=== PATIENT | male | born 1970 | race Caucasian/White ===

== ENCOUNTER 2019-04-30 19:02 | Emergency (ER) | payer OTHER ==
[2019-04-30] MEDS ORDERED: HYDROmorphone 1 MG/ML Syringe ONE (19:54)
[2019-04-30] MEDS ORDERED: HYDROmorphone 2 MG Tab PO ONE ×3 (19:56→19:59)
--- NOTE | 2019-04-30 20:05 | EDM.PDOC ---
ED HPI GENERAL MEDICAL PROBLEM - General Chief Complaint: Gastrointestinal Problem Stated Complaint: MEDICAL [facility]IA [facility] Time Seen by Provider: 04/30/19 19:30 Source of Information: Reports: Patient History Limitations: Reports: No Limitations - History of Present Illness INITIAL COMMENTS - FREE TEXT/NARRATIVE: 49-year-old male who was discharged from the hospital after surgery for prostate cancer is having a bad reaction to the Vicodin. No fever or chills, no nausea or vomiting. He received Dilaudid in the hospital and did well with that. Onset: Sudden - Related Data Allergies Allergy/AdvReac Type Severity Reaction Status Date / Time Penicillins Allergy Nausea Verified 04/30/19 19:25 Home Meds: Home Meds ALPRAZolam [Alprazolam] 0.5 mg PO ASDIRECTED PRN 04/30/19 [History] Clindamycin HCl 300 mg PO TID 04/30/19 [History] Hydrocodone/Acetaminophen [Hydrocodon-Acetaminophen 5-325] 1 tab PO Q4H PRN 07/11 [History] amLODIPine [Norvasc] 5 mg PO DAILY 04/30/19 [History] Past Medical History Cardiovascular History: Reports: Hypertension Genitourinary History: Reports: Prostate Disorder Oncologic (Cancer) History: Reports: Prostate - Past Surgical History Male Surgical History: Reports: Prostatectomy Social & Family History - Tobacco Use Smoking Status *Q: Former Smoker Used Tobacco, but Quit: Yes Month/Year Tobacco Last Used: 36 - Caffeine Use Caffeine Use: Reports: Coffee - Recreational Drug Use Recreational Drug Use: No ED ROS GENERAL - Review of Systems Review Of Systems: See Below Constitutional: Denies: Fever, Chills HEENT: Denies: Vision Change Respiratory: Denies: Shortness of Breath Cardiovascular: Denies: Chest Pain GI/Abdominal: Reports: Abdominal Pain. Denies: Constipation : Reports: No Symptoms Neurological: Reports: Confusion, Other (Agitation) Psychiatric: Reports: Agitation, Anxiety ED EXAM, GENERAL - Physical Exam Exam: See Below Exam Limited By: No Limitations General Appearance: Alert, No Apparent Distress, Other (Patient is calm down, thinking clearly and is communicating normally) Respiratory/Chest: No Respiratory Distress, Lungs Clear GI/Abdominal: Normal Bowel Sounds, Soft, Other (Some tenderness to palpation around the surgical sites, no erythema or drainage) Extremities: Other (1+ symmetric lower extremity edema) Neurological: Alert, Oriented Psychiatric: Normal Affect, Normal Mood Skin Exam: Warm, Dry, Other (Incisions look excellent, dry, no drainage) Course - Vital Signs Last Recorded V/S: Last Vital Signs Temp 97.8 F 04/30/19 19:23 Pulse 101 H 04/30/19 19:23 Resp 16 04/30/19 19:23 BP 185/82 H 04/30/19 19:23 Pulse Ox 92 L 04/30/19 19:23 - Orders/Labs/Meds Meds: Medications Discontinued Medications Generic Name Dose Route Start Last Admin Trade Name Mark PRN Reason Stop Dose Admin Hydromorphone HCl 2 mg 04/30/19 19:56 04/30/19 20:14 Dilaudid PO 04/30/19 19:57 2 mg ONETIME ONE Administration Hydromorphone HCl 2 mg 04/30/19 19:57 04/30/19 20:15 Dilaudid PO 04/30/19 19:58 2 mg ONETIME ONE Administration Hydromorphone HCl 2 mg 04/30/19 19:59 04/30/19 20:15 Dilaudid PO 04/30/19 20:00 2 mg ONETIME ONE Administration - Re-Assessments/Exams Free Text/Narrative Re-Assessment/Exam: 04/30/19 23:33 Patient was given 3 doses of 2 mg Dilaudid to take every 4 hours tonight and a prescription for 20 doses. Hydrocodone was discarded. He'll return over the next 24-48 hours if pain control is not adequate or he develops other concerns.. Departure - Departure Time of Disposition: 20:19 Disposition: Home, Self-Care 01 Condition: Good Clinical Impression: Medication side effect - Discharge Information Instructions: Pain Medicine Instructions, [id number] Referrals: PCP,None [Primary Care Provider] - Forms: ED Department Discharge Care Plan Goals: Take Dilaudid at 10 PM 2 and 6 AM and fill prescription tomorrow to continue pain medication as directed. Return if additional problems develop or you have other concerns.
== END 2019-04-30 20:19 | disposition home or self-care (01) ==
LOC: JP.ED 19:02
DX: T40.2X5A Adverse effect of other opioids, initial encounter (principal); I10 Essential (primary) hypertension; Z88.0 Allergy status to penicillin; Z79.899 Other long term (current) drug therapy; Z85.46 Personal history of malignant neoplasm of prostate; Z87.891 Personal history of nicotine dependence
CPT/HCPCS: 99284; A9270

== ENCOUNTER 2019-11-03 11:55 | Emergency (ER) | payer OTHER, SELFPAY ==
[2019-11-03] MEDS ORDERED: Albuterol 0.083% 2.5 MG/3 ML Neb Soln NEB ONE (12:53)
--- NOTE | 2019-11-03 12:56 | EDM.PDOC ---
ED HPI GENERAL MEDICAL PROBLEM - General Chief Complaint: Respiratory Problem Stated Complaint: PLUGGED FEEDING TUBE, SOB, IN PAIN - POST SURGERY Time Seen by Provider: 11/03/19 12:54 Source of Information: Reports: Patient History Limitations: Reports: No Limitations - History of Present Illness INITIAL COMMENTS - FREE TEXT/NARRATIVE: pt has a thyroglossal cyst surgery and has a feeding tube in place . The feeding tube is now plugged. He is not to take anything orally until next week. Onset: Today, Other ( The tube is plugged. ) Duration: Hour(s): Location: Reports: Neck, Chest, Abdomen Associated Symptoms: Reports: Cough, Other ( coughing up bloody sputum. ) - Related Data Allergies Allergy/AdvReac Type Severity Reaction Status Date / Time acetaminophen [From [place]] Allergy Other Verified 11/03/19 12:28 hydrocodone [From [place]] Allergy Other Verified 11/03/19 12:28 Penicillins Allergy Nausea Verified 11/03/19 12:27 Home Meds: Home Meds amLODIPine [Norvasc] 5 mg PO DAILY 04/30/19 [History] Acetaminophen with Codeine [Tylenol with Codeine #3 Tablet] 1 tab PO ASDIRECTED PRN 11/03/19 [History] Sildenafil [Viagra] 50 mg PO BEDTIME PRN 11/03/19 [History] Past Medical History Cardiovascular History: Reports: Hypertension Genitourinary History: Reports: Prostate Disorder Endocrine/Metabolic History: Reports: None Oncologic (Cancer) History: Reports: Prostate - Past Surgical History Head Surgeries/Procedures: Reports: None Cardiovascular Surgical History: Reports: None Male Surgical History: Reports: Prostatectomy Endocrine Surgical History: Reports: Thyroidectomy, Other (See Below) Oncologic Surgical History: Reports: None Dermatological Surgical History: Reports: None Social & Family History - Tobacco Use Smoking Status *Q: Former Smoker Used Tobacco, but Quit: Yes Month/Year Tobacco Last Used: 2015 Second Hand Smoke Exposure: No - Caffeine Use Caffeine Use: Reports: Coffee, Soda - Recreational Drug Use Recreational Drug Use: No ED ROS GENERAL - Review of Systems Review Of Systems: See Below Constitutional: Reports: No Symptoms HEENT: Reports: Other (pt had a throglossal cyst removed 2 days ago. He is using a feeding tube and the feeding tube is plugged. He is also feeling sob. He has been coughing some. ) Respiratory: Reports: Shortness of Breath Cardiovascular: Reports: No Symptoms Endocrine: Reports: No Symptoms GI/Abdominal: Reports: Other ( feeding tube is not working. ) : Reports: No Symptoms Musculoskeletal: Reports: No Symptoms Skin: Reports: No Symptoms Neurological: Reports: No Symptoms Psychiatric: Reports: Anxiety ED EXAM, GI/ABD - Physical Exam Exam: See Below Text/Narrative:: pt arrived with a feeding tube that was plugged. He is getting ensure per the feeding tube. He is also feeling sob. Exam Limited By: No Limitations General Appearance: Alert, Anxious, Mild Distress Ears: Normal TMs Nose: Normal Inspection Throat/Mouth: Normal Inspection Head: Atraumatic Neck: Other (pt has a scar on the neck where the cyst was removed. This was steristripped) Respiratory/Chest: Wheezing, Other ( pt has a tight sounding chest and is very wheezy. ) Cardiovascular: Regular Rate, Rhythm GI/Abdominal Exam: Soft, Non-Tender (Male) Exam: Deferred Rectal (Males) Exam: Deferred Back Exam: Normal Inspection Extremities: Normal Inspection Course - Vital Signs Last Recorded V/S: Last Vital Signs Temp 37.2 C 11/03/19 12:35 Pulse 91 11/03/19 12:35 Resp 18 11/03/19 12:35 BP 156/93 H 11/03/19 12:35 Pulse Ox 95 11/03/19 12:35 - Orders/Labs/Meds Labs: Laboratory Tests 11/03/19 11/03/19 Range/Units 12:56 12:56 WBC 11.1 H (4.5-11.0) K/uL RBC 4.46 (4.30-5.90) M/uL Hgb 13.8 (12.0-15.0) g/dL Hct 42.2 (40.0-54.0) % MCV 95 (80-98) fL MCH 31 (27-31) pg MCHC 33 (32-36) % Plt Count 249 (150-400) K/uL Neut % (Auto) 75 H (36-66) % Lymph % (Auto) 12 L (24-44) % [place] % (Auto) 13 H (2-6) % Eos % (Auto) 0 L (2-4) % Baso % (Auto) 0 (0-1) % Sodium 134 L (140-148) mmol/L Potassium 3.7 (3.6-5.2) mmol/L Chloride 97 L (100-108) mmol/L Carbon Dioxide 24 (21-32) mmol/L Anion Gap 16.7 H (5.0-14.0) mmol/L BUN 22 H (7-18) mg/dL Creatinine 1.1 (0.8-1.3) mg/dL Est Cr Clr Drug Dosing 82.03 mL/min Estimated GFR (MDRD) > 60 (>60) Glucose 103 (74-106) mg/dL Calcium 8.8 (8.5-10.1) mg/dL Total Bilirubin 0.8 (0.2-1.0) mg/dL AST 19 (15-37) U/L ALT 23 (12-78) U/L Alkaline Phosphatase 86 (46-116) U/L Total Protein 8.4 H (6.4-8.2) g/dL Albumin 3.9 (3.4-5.0) g/dL Globulin 4.5 H (2.3-3.5) g/dL Albumin/Globulin Ratio 0.9 L (1.2-2.2) Meds: Medications Discontinued Medications Generic Name Dose Route Start Last Admin Trade Name Freq PRN Reason Stop Dose Admin Albuterol 2.5 mg 11/03/19 12:53 11/03/19 13:01 Proventil Neb Soln NEB 11/03/19 12:54 2.5 mg ONETIME ONE Administration Sodium Chloride 1,000 mls @ 999 mls/hr 11/03/19 13:30 11/03/19 13:46 Normal Saline IV 999 mls/hr ASDIRECTED CANDACE Administration - Re-Assessments/Exams Free Text/Narrative Re-Assessment/Exam: 11/03/19 14:26 wbc was not sig elevated. His chest xray did not reveal a infiltrate. He does not have a fever. A albterol neb was given to the pt . His feeding tube was irrigated to no avail. A decision was made that another feeding tube should be placed. 11/03/19 14:26 Departure - Departure Time of Disposition: 15:28 Disposition: Home, Self-Care 01 Condition: Fair Clinical Impression: Feeding tube blocked, Dehydration, Bronchospasm - Discharge Information Instructions: How to Care for a Feeding Tube, [id number], Dehydration, Adult , [id number], Bronchospasm, Adult, [id number] Referrals: PCP,None [Primary Care Provider] - Forms: ED Department Discharge Care Plan Goals: do the same feedings per discharge instruction, albuterol inhaler with a small assistant finance manager 2 puffs tid Sepsis Event Note - Evaluation Sepsis Screening Result: No Definite Risk - Focused Exam Date Exam was Performed: 11/05/19 Time Exam was Performed: 18:25
--- NOTE | 2019-11-03 13:13 | CRLCR ---
INDICATION: Dyspnea COMPARISON: None FINDINGS: PA and lateral views of the chest were obtained. The lungs remain clear. No focal or diffuse infiltrates are present. The heart remains normal in size. The mediastinum is normal in appearance. The osseous structures are normal in appearance for the patient`s age. A weighted tip feeding tube ends in the stomach IMPRESSION: No evidence of active pulmonary disease. A weighted tip feeding tube ends in the stomach Dictated by Billy Simpson MD @ Nov 03 2019 1:10PM Signed by Dr. Billy Simpson @ Nov 03 2019 1:12PM
[2019-11-03] MEDS ORDERED: Sodium Chloride 0.9% 1,000 ML IV SCH (13:30)
== END 2019-11-03 15:43 | disposition home or self-care (01) ==
LOC: JP.ED 11:55
DX: K94.23 Gastrostomy malfunction (principal); E86.0 Dehydration; J98.01 Acute bronchospasm; I10 Essential (primary) hypertension; Z88.0 Allergy status to penicillin; Z79.899 Other long term (current) drug therapy; Z88.8 Allergy status to other drugs, medicaments and biological substances; Z87.891 Personal history of nicotine dependence
CPT/HCPCS: 36415; 71046; 80053; 85025; 94640; 96360; 99285; J7030

== ENCOUNTER 2019-11-05 17:53 | Emergency (ER) | payer OTHER ==
[2019-11-05] MEDS ORDERED: LORazepam 0.5 MG Tab PO ONE (18:26)
--- NOTE | 2019-11-05 18:27 | EDM.PDOC ---
ED HPI GENERAL MEDICAL PROBLEM - General Chief Complaint: Tube Replacement Stated Complaint: FEEDING TUBE FELL OUT Time Seen by Provider: 11/05/19 18:27 Source of Information: Reports: Patient History Limitations: Reports: No Limitations - History of Present Illness INITIAL COMMENTS - FREE TEXT/NARRATIVE: pt arrived with a history of accidently pulling out his ng tube. He had been doing feedings since he left on thur. I did contact Dr Izaguirre as to weather he could leave it out or not and he felt that that should not happen. Onset: Today, Other ( tube came out this pm. ) Duration: Hour(s): Location: Reports: Neck, Other (pt had a thyroglossal cyst removed. ) Associated Symptoms: Reports: Other ( feeding tube is out. ) - Related Data Allergies Allergy/AdvReac Type Severity Reaction Status Date / Time acetaminophen [From [place]] Allergy Other Verified 11/03/19 12:28 hydrocodone [From [place]] Allergy Other Verified 11/03/19 12:28 Penicillins Allergy Nausea Verified 11/03/19 12:27 Home Meds: Home Meds amLODIPine [Norvasc] 5 mg PO DAILY 04/30/19 [History] Acetaminophen with Codeine [Tylenol with Codeine #3 Tablet] 1 tab PO ASDIRECTED PRN 11/03/19 [History] Sildenafil [Viagra] 50 mg PO BEDTIME PRN 11/03/19 [History] Past Medical History Cardiovascular History: Reports: Hypertension Genitourinary History: Reports: Prostate Disorder Endocrine/Metabolic History: Reports: None Oncologic (Cancer) History: Reports: Prostate - Past Surgical History Head Surgeries/Procedures: Reports: None Cardiovascular Surgical History: Reports: None Male Surgical History: Reports: Prostatectomy Endocrine Surgical History: Reports: Thyroidectomy, Other (See Below) Oncologic Surgical History: Reports: None Dermatological Surgical History: Reports: None Social & Family History - Tobacco Use Smoking Status *Q: Former Smoker Used Tobacco, but Quit: Yes Month/Year Tobacco Last Used: 2015 - Caffeine Use Caffeine Use: Reports: Coffee, Soda - Recreational Drug Use Recreational Drug Use: No ED ROS GENERAL - Review of Systems Review Of Systems: See Below Constitutional: Reports: No Symptoms HEENT: Reports: No Symptoms Respiratory: Reports: No Symptoms Cardiovascular: Reports: No Symptoms Endocrine: Reports: No Symptoms GI/Abdominal: Reports: Other (pt accidently pulled out his feeding tube. ) : Reports: No Symptoms Skin: Reports: No Symptoms Neurological: Reports: No Symptoms ED EXAM, GENERAL - Physical Exam Exam: See Below Free Text/Narrative:: Pt arrived for reinsertion of the feeding tube. Exam Limited By: No Limitations General Appearance: Alert, Anxious, Other (pt is not sleeping. ) Ears: Normal TMs Nose: Normal Inspection Throat/Mouth: Normal Inspection Head: Atraumatic Neck: Normal Inspection Respiratory/Chest: No Respiratory Distress Cardiovascular: Regular Rate, Rhythm GI/Abdominal: Soft, Non-Tender Rectal (Males) Exam: Deferred Back Exam: Normal Inspection Extremities: Normal Inspection Neurological: Alert, Oriented, Normal Cognition Course - Vital Signs Last Recorded V/S: Last Vital Signs Temp 36.5 C 11/05/19 18:02 Pulse 112 H 11/05/19 18:02 Resp 16 11/05/19 18:02 BP 179/110 H 11/05/19 18:02 Pulse Ox 91 L 11/05/19 18:02 - Orders/Labs/Meds Orders: Active Orders 24 hr Category Date Time Status Abdomen 1V Flat [CR] Stat Exams 11/05/19 18:36 Ordered Meds: Medications Discontinued Medications Generic Name Dose Route Start Last Admin Trade Name Freq PRN Reason Stop Dose Admin Lorazepam 0.5 mg 11/05/19 18:26 11/05/19 18:57 Ativan PO 11/05/19 18:27 0.5 mg ONETIME ONE Administration - Re-Assessments/Exams Free Text/Narrative Re-Assessment/Exam: 11/05/19 19:10 Dr Izaguirre was contacted about leaving the tube out and he definitely wished to have it back in. The tuibe was reinserted and a xray was obtained. It was curling back so it was pulled back. He was more comfortable with it. He was given atiovan and the tube irrigated well. Departure - Departure Time of Disposition: 19:01 Disposition: Home, Self-Care 01 Condition: Fair Clinical Impression: Anxiety, Encounter for feeding tube placement - Discharge Information Instructions: How To Give Medicine Through a Feeding Tube Referrals: Cady Duarte MD [Primary Care Provider] - Forms: ED Department Discharge Care Plan Goals: continue feedings until wed. Ativan 1/2 tab q8h prn for anxiety. Pt can take a whole tab at hs. Sepsis Event Note - Evaluation Sepsis Screening Result: No Definite Risk - Focused Exam Vital Signs: Vital Signs Temp Pulse Resp BP Pulse Ox 11/05/19 18:02 36.5 C 112 H 16 179/110 H 91 L 11/05/19 18:01 36.5 C 112 H 16 179/110 H 91 L Date Exam was Performed: 11/05/19 Time Exam was Performed: 19:06 - My Orders Last 24 Hours: My Active Orders 11/05/19 18:36 Abdomen 1V Flat [CR] Stat - Assessment/Plan Last 24 Hours: My Active Orders 11/05/19 18:36 Abdomen 1V Flat [CR] Stat
--- NOTE | 2019-11-05 19:16 | CRLCR ---
INDICATION: Tube placement TECHNIQUE: Abdominal radiograph 2 view COMPARISON: None FINDINGS: Moderate degradation of image quality noted due to body habitus. Bowel: The bowel gas pattern is normal without evidence of bowel obstruction. NG tube present with tip in the gastric fundus. Soft tissue: No evidence of pneumoperitoneum present. No suspicious calcifications noted. Bone: Unremarkable for age. IMPRESSION: 1. NG tube present with tip in the gastric fundus. Dictated by: Tremaine Cedeno MD @ 11/05/2019 19:15:44 (Electronically Signed)
== END 2019-11-05 19:10 | disposition home or self-care (01) ==
LOC: JP.ED 17:53
DX: Z46.59 Encounter for fitting and adjustment of other gastrointestinal appliance and device (principal); F41.9 Anxiety disorder, unspecified; I10 Essential (primary) hypertension; Z87.891 Personal history of nicotine dependence; Z88.6 Allergy status to analgesic agent; Z88.5 Allergy status to narcotic agent; Z88.0 Allergy status to penicillin; Z79.899 Other long term (current) drug therapy
CPT/HCPCS: 43752; 74018; 99283-25; A9270-GY

== ENCOUNTER 2019-11-26 21:11 | Emergency (ER) | payer OTHER ==
[2019-11-26] MEDS ORDERED: Phenylephrine 1% 10 MG/ML SDV IM ONE (22:27)
--- NOTE | 2019-11-26 22:33 | EDM.PDOC ---
ED HPI GENERAL MEDICAL PROBLEM - General Chief Complaint: Genitourinary Problem Stated Complaint: MEDICAL Time Seen by Provider: 11/26/19 21:40 Source of Information: Reports: Patient, Family History Limitations: Reports: No Limitations - History of Present Illness INITIAL COMMENTS - FREE TEXT/NARRATIVE: 49-year-old male who used a prostaglandin E1 injections into the penis now has a sustained erection for over 5 hours and is becoming uncomfortable. Onset: Sudden Duration: Hour(s): (5 hours) Associated Symptoms: Reports: No Other Symptoms - Related Data Allergies Allergy/AdvReac Type Severity Reaction Status Date / Time acetaminophen [From [place]] Allergy Other Verified 11/26/19 21:31 hydrocodone [From [place]] Allergy Other Verified 11/26/19 21:31 Penicillins Allergy Nausea Verified 11/26/19 21:31 Home Meds: Home Meds amLODIPine [Norvasc] 5 mg PO DAILY 04/30/19 [History] Sildenafil [Viagra] 50 mg PO BEDTIME PRN 11/03/19 [History] Alprostadil [Prostaglandin E1] 11/26/19 [History] Past Medical History Cardiovascular History: Reports: Hypertension Genitourinary History: Reports: Prostate Disorder Endocrine/Metabolic History: Reports: None Oncologic (Cancer) History: Reports: Prostate - Past Surgical History Head Surgeries/Procedures: Reports: None Cardiovascular Surgical History: Reports: None Male Surgical History: Reports: Prostatectomy Endocrine Surgical History: Reports: Thyroidectomy, Other (See Below) Oncologic Surgical History: Reports: None Dermatological Surgical History: Reports: None Social & Family History - Tobacco Use Smoking Status *Q: Never Smoker - Caffeine Use Caffeine Use: Reports: Coffee, Soda ED ROS GENERAL - Review of Systems Review Of Systems: See Below Constitutional: Denies: Fever, Chills Respiratory: Denies: Shortness of Breath GI/Abdominal: Denies: Abdominal Pain, Nausea, Vomiting ED EXAM, RENAL/ - Physical Exam Exam: See Below Exam Limited By: No Limitations General Appearance: Alert, Mild Distress (Fairly uncomfortable) Respiratory/Chest: No Respiratory Distress (Male) Exam: Other (Patient does have an erection, no apparent ischemia.) Course - Vital Signs Last Recorded V/S: Last Vital Signs Temp 98.2 F 11/26/19 21:40 Pulse 126 H 11/26/19 21:40 Resp 24 H 11/26/19 21:40 BP 149/106 H 11/26/19 21:40 Pulse Ox 97 11/26/19 21:40 - Orders/Labs/Meds Meds: Medications Discontinued Medications Generic Name Dose Route Start Last Admin Trade Name Mark PRN Reason Stop Dose Admin Lidocaine HCl 5 ml 11/26/19 23:27 11/26/19 23:32 Xylocaine-Mpf 1% INJECT 11/26/19 23:28 5 ml ONETIME ONE Administration Phenylephrine HCl 5 mg 11/26/19 22:27 11/26/19 23:32 Rishi-Synephrine IM 11/26/19 22:28 5 mg ONETIME ONE Administration - Re-Assessments/Exams Free Text/Narrative Re-Assessment/Exam: 11/27/19 06:37 After consulting urology, the patient was prepared for penile needle decompression and infiltration with phenylephrine. This was done under sterile conditions. Using an 18 g needle the corpus was decompressed with removal of 40 cc of blood, and diluted phenylephrine was infiltrated. Unfortunately after 2 attempts the erection was persistant. The patient then was arranged to go to Urology in [place] by private car. Departure - Departure Time of Disposition: 00:20 Disposition: DC/Tfer to Other 70 Clinical Impression: Priapism, drug-induced - Discharge Information Instructions: Priapism Referrals: Cady Duarte MD [Primary Care Provider] - Forms: ED Department Discharge Care Plan Goals: Go directly to the [place] emergency room for medical treatment. Sepsis Event Note - Evaluation Sepsis Screening Result: No Definite Risk - Focused Exam Vital Signs: Vital Signs Temp Pulse Resp BP Pulse Ox 11/26/19 21:40 98.2 F 126 H 24 H 149/106 H 97 11/26/19 21:25 98.2 F 126 H 24 H 149/106 H 97 Date Exam was Performed: 11/27/19 Time Exam was Performed: 06:34
== END 2019-11-27 00:20 | disposition other institution (70) ==
LOC: JP.ED 21:11
DX: N48.33 Priapism, drug-induced (principal); T46.7X5A Adverse effect of peripheral vasodilators, initial encounter; I10 Essential (primary) hypertension; Z88.8 Allergy status to other drugs, medicaments and biological substances; Z88.0 Allergy status to penicillin; Z79.899 Other long term (current) drug therapy
CPT/HCPCS: 99284-25; J2001; J2370

== ENCOUNTER 2020-01-30 11:53 | Emergency (ER) | payer OTHER ==
--- NOTE | 2020-01-30 12:31 | EDM.PDOC ---
ED HPI GENERAL MEDICAL PROBLEM - General Chief Complaint: General Stated Complaint: POPPED MASS IN NECK WITH CHEST PAINS Time Seen by Provider: 01/30/20 12:29 Source of Information: Reports: Patient History Limitations: Reports: No Limitations - History of Present Illness INITIAL COMMENTS - FREE TEXT/NARRATIVE: pt had left sided chest pain and elevated bp in the middle of the nite. He is now painfree/ He has a mass in the midline of his neck which needs a cat scan. Onset: Other ( The mass was noticed yesterday. ) Duration: Hour(s): Location: Reports: Chest Associated Symptoms: Reports: Chest Pain, Shortness of Breath, Other (Pain gets better with deep breathing. ) Neck Pain Score (Numeric/FACES): 2 - Related Data Allergies Allergy/AdvReac Type Severity Reaction Status Date / Time acetaminophen [From [place]] Allergy Other Verified 11/26/19 21:31 hydrocodone [From [place]] Allergy Other Verified 11/26/19 21:31 Penicillins Allergy Nausea Verified 11/26/19 21:31 Home Meds: Home Meds amLODIPine [Norvasc] 5 mg PO DAILY 04/30/19 [History] Sildenafil [Viagra] 50 mg PO BEDTIME PRN 11/03/19 [History] Alprostadil [Prostaglandin E1] 11/26/19 [History] Past Medical History Cardiovascular History: Reports: Hypertension Genitourinary History: Reports: Prostate Disorder Endocrine/Metabolic History: Reports: None Oncologic (Cancer) History: Reports: Prostate - Infectious Disease History Infectious Disease History: Reports: Chicken Pox - Past Surgical History Head Surgeries/Procedures: Reports: None Cardiovascular Surgical History: Reports: None Male Surgical History: Reports: Prostatectomy Endocrine Surgical History: Reports: Thyroidectomy, Other (See Below) Oncologic Surgical History: Reports: None Dermatological Surgical History: Reports: None Social & Family History - Tobacco Use Smoking Status *Q: Never Smoker - Caffeine Use Caffeine Use: Reports: Soda - Recreational Drug Use Recreational Drug Use: No ED ROS GENERAL - Review of Systems Review Of Systems: See Below Constitutional: Reports: No Symptoms HEENT: Reports: Other (mass near the scar from the thriglossal cyst remval. This appeared yesterday. ) Respiratory: Reports: Other (pt has pain ith deep breathing but sometimes the deep breathing makes the pain better. ) Cardiovascular: Reports: No Symptoms Endocrine: Reports: No Symptoms GI/Abdominal: Reports: No Symptoms : Reports: No Symptoms Musculoskeletal: Reports: No Symptoms ED EXAM, GENERAL - Physical Exam Exam: See Below Free Text/Narrative:: pt arrived with an episode of chest pain last nite. This just lasted a short time.He also has a mass on the ant portion of the neck. This appeared yesterday. Exam Limited By: No Limitations General Appearance: Alert, Mild Distress Ears: Normal TMs Nose: Normal Inspection Throat/Mouth: Other (pt has a mass in the front of the neck. This does appear slightly red. ) Head: Atraumatic Neck: Normal Inspection Respiratory/Chest: No Respiratory Distress Cardiovascular: Regular Rate, Rhythm GI/Abdominal: Soft, Non-Tender (Male) Exam: Deferred Rectal (Males) Exam: Deferred Back Exam: Normal Inspection Extremities: Normal Inspection Neurological: Alert, Oriented, Normal Cognition Course - Vital Signs Last Recorded V/S: Last Vital Signs Temp 35.8 C L 01/30/20 12:30 Pulse 88 01/30/20 12:30 Resp 16 01/30/20 12:30 BP 147/98 H 01/30/20 12:30 Pulse Ox 98 01/30/20 12:30 - Orders/Labs/Meds Labs: Laboratory Tests 01/30/20 01/30/20 01/30/20 Range/Units 12:24 12:24 12:24 WBC 9.9 (4.5-11.0) K/uL RBC 4.82 (4.30-5.90) M/uL Hgb 14.5 (12.0-15.0) g/dL Hct 43.9 (40.0-54.0) % MCV 91 (80-98) fL MCH 30 (27-31) pg MCHC 33 (32-36) % Plt Count 355 (150-400) K/uL Neut % (Auto) 72 H (36-66) % Lymph % (Auto) 13 L (24-44) % [place] % (Auto) 9 H (2-6) % Eos % (Auto) 6 H (2-4) % Baso % (Auto) 1 (0-1) % D-Dimer, Quantitative (0.0-400.0) ng/mL Sodium 139 L (140-148) mmol/L Potassium 4.2 (3.6-5.2) mmol/L Chloride 103 (100-108) mmol/L Carbon Dioxide 27 (21-32) mmol/L Anion Gap 13.2 (5.0-14.0) mmol/L BUN 19 H (7-18) mg/dL Creatinine 1.3 (0.8-1.3) mg/dL Est Cr Clr Drug Dosing 68.63 mL/min Estimated GFR (MDRD) 58 L (>60) Glucose 92 (74-106) mg/dL Calcium 8.5 (8.5-10.1) mg/dL Total Bilirubin 0.5 (0.2-1.0) mg/dL AST 18 (15-37) U/L ALT 27 (12-78) U/L Alkaline Phosphatase 102 (46-116) U/L Troponin I < 0.017 (0.000-0.056) ng/mL C-Reactive Protein (0.0-0.3) mg/dL Total Protein 7.8 (6.4-8.2) g/dL Albumin 3.7 (3.4-5.0) g/dL Globulin 4.1 H (2.3-3.5) g/dL Albumin/Globulin Ratio 0.9 L (1.2-2.2) Urine Color (YELLOW) Urine Appearance (CLEAR) Urine pH (5.0-8.0) Ur Specific [place] (1.008-1.030) Urine Protein (NEGATIVE) mg/dL Urine Glucose (UA) (NEGATIVE) mg/dL Urine Ketones (NEGATIVE) mg/dL Urine Occult Blood (NEGATIVE) Urine Nitrite (NEGATIVE) Urine Bilirubin (NEGATIVE) Urine Urobilinogen (0.2-1.0) EU/dL Ur Leukocyte Esterase (NEGATIVE) Urine RBC (0-5) Urine WBC (0-5) Ur Epithelial Cells Amorphous Sediment Urine Bacteria Urine Mucus 01/30/20 01/30/20 01/30/20 Range/Units 12:26 13:15 15:10 WBC (4.5-11.0) K/uL RBC (4.30-5.90) M/uL Hgb (12.0-15.0) g/dL Hct (40.0-54.0) % MCV (80-98) fL MCH (27-31) pg MCHC (32-36) % Plt Count (150-400) K/uL Neut % (Auto) (36-66) % Lymph % (Auto) (24-44) % [place] % (Auto) (2-6) % Eos % (Auto) (2-4) % Baso % (Auto) (0-1) % D-Dimer, Quantitative 579 H (0.0-400.0) ng/mL Sodium (140-148) mmol/L Potassium (3.6-5.2) mmol/L Chloride (100-108) mmol/L Carbon Dioxide (21-32) mmol/L Anion Gap (5.0-14.0) mmol/L BUN (7-18) mg/dL Creatinine (0.8-1.3) mg/dL Est Cr Clr Drug Dosing mL/min Estimated GFR (MDRD) (>60) Glucose (74-106) mg/dL Calcium (8.5-10.1) mg/dL Total Bilirubin (0.2-1.0) mg/dL AST (15-37) U/L ALT (12-78) U/L Alkaline Phosphatase (46-116) U/L Troponin I (0.000-0.056) ng/mL C-Reactive Protein 1.95 H (0.0-0.3) mg/dL Total Protein (6.4-8.2) g/dL Albumin (3.4-5.0) g/dL Globulin (2.3-3.5) g/dL Albumin/Globulin Ratio (1.2-2.2) Urine Color Yellow (YELLOW) Urine Appearance Clear (CLEAR) Urine pH 6.5 (5.0-8.0) Ur Specific [place] 1.015 (1.008-1.030) Urine Protein Negative (NEGATIVE) mg/dL Urine Glucose (UA) Negative (NEGATIVE) mg/dL Urine Ketones Negative (NEGATIVE) mg/dL Urine Occult Blood Trace-intact H (NEGATIVE) Urine Nitrite Negative (NEGATIVE) Urine Bilirubin Negative (NEGATIVE) Urine Urobilinogen 0.2 (0.2-1.0) EU/dL Ur Leukocyte Esterase Negative (NEGATIVE) Urine RBC 0-5 (0-5) Urine WBC 0-5 (0-5) Ur Epithelial Cells Not seen Amorphous Sediment Not seen Urine Bacteria Not seen Urine Mucus Rare Meds: Medications Discontinued Medications Generic Name Dose Route Start Last Admin Trade Name Freq PRN Reason Stop Dose Admin Ceftriaxone Sodium 1 gm/ 0 gm 01/30/20 14:37 Lidocaine HCl 2.1 ml IM 01/30/20 14:38 ONETIME ONE Sodium Chloride 70 mls @ 3 mls/sec 01/30/20 12:45 01/30/20 13:12 Normal Saline IV 3 mls/sec ASDIRECTED CANDACE Administration Ceftriaxone Sodium 1 gm/ 50 mls @ 100 mls/hr 01/30/20 14:55 01/30/20 15:07 Sodium Chloride IV 01/30/20 15:24 100 mls/hr ONETIME ONE Administration Iopamidol 100 ml 01/30/20 12:35 01/30/20 13:12 Isovue-300 (61%) IV 01/30/20 12:36 100 ml ONETIME ONE Administration - Re-Assessments/Exams Free Text/Narrative Re-Assessment/Exam: 01/30/20 14:17 ekg [facility]. His trop was normal. Wbc is not elevated. He had a cat scan of the neck mass which showed a fluid filled area with the density that could be pus. Pt has a crp which is elevated. Pt did have a ddimer wghich is only mildly elevated. He has good o2 sats. 01/30/20 14:19 01/30/20 14:20 Departure - Departure Time of Disposition: 14:38 Disposition: Home, Self-Care 01 Condition: Fair Clinical Impression: Abscess of neck, Pleuritic chest pain - Discharge Information Instructions: Skin Abscess, [id number] Referrals: PCP,None [Primary Care Provider] - Forms: ED Department Discharge Care Plan Goals: keflex 500mg tid, push fluids, keep appt on the 11th, rtc if this should suddly become larger. Sepsis Event Note - Focused Exam Date Exam was Performed: 02/02/20 Time Exam was Performed: 07:33
[2020-01-30] MEDS ORDERED: Iopamidol 612 MG/ML 500 ML Multipack Bottle IV ONE (12:35)
--- NOTE | 2020-01-30 14:25 | CT ---
Soft Tissue Neck w Cont CLINICAL HISTORY: Anterior neck mass COMPARISON: None TECHNIQUE: Multiple axial images were obtained of the neck with the IV infusion of iodinated contrast. Auto dosage reduction and iterative reconstruction techniques employed. FINDINGS: There is moderate changes of both acute and chronic ethmoid and maxillary sinusitis. The nasopharynx has a normal contour. There is enlargement of the palatine tonsils. There are no parapharyngeal masses seen. The vallecula is clear. The pyriform sinuses show no mass effect. The vocal cords are symmetric. The subglottic airway has a normal course and contour. The thyroid gland has a normal shape and density. There is an ill-defined relatively low-attenuation mass in the pretracheal region at the level of the thyroid gland. This is just to the right of midline. This measures 2.8 x 3.2 x 4.7 cm. There is a low attenuation center with some rim enhancement. Pretracheal tissues show mixed density. Patient has a history recent thyroglossal duct surgery. This is most likely a postoperative fluid collection. Abscess and posterior phlegmon is suspected.. The salivary glands appear normal. There are a few small nonspecific lymph nodes in the neck bilaterally IMPRESSION: Ovoid masslike soft tissue focus in the pretracheal region near the level of the thyroid and a site of recent previous surgery. This is suspect for a combination of phlegmon and anterior abscess. Moderate ethmoid and maxillary sinusitis with both acute and chronic characteristics Tonsillar enlargement CHEST: 2 view CLINICAL HISTORY:Neck mass COMPARISON:October 2019 FINDINGS: The heart size, pulmonary vascularity and hilar structures are normal. No infiltrate effusion or pneumothorax is seen. IMPRESSION: No acute cardiopulmonary process. Feeding tube has been removed
[2020-01-30] MEDS ORDERED: cefTRIAXone 1 GM, Lidocaine 1% 2.1 ML IM ONE ×2 (14:37)
[2020-01-30] MEDS ORDERED: cefTRIAXone 1 GM in Sodium Chloride 0.9% 50 ML IV ONE ×2 (14:44→14:55)
--- NOTE | 2020-01-30 15:07 | CR ---
CHEST: 2 view CLINICAL HISTORY:Left chest pain COMPARISON:2019 FINDINGS: The heart size, pulmonary vascularity and hilar structures are normal. No infiltrate effusion or pneumothorax is seen. IMPRESSION: No acute cardiopulmonary process.
== END 2020-01-30 15:34 | disposition home or self-care (01) ==
LOC: JP.ED 11:53
DX: L02.11 Cutaneous abscess of neck (principal); R07.81 Pleurodynia; Z88.5 Allergy status to narcotic agent; Z88.0 Allergy status to penicillin; I10 Essential (primary) hypertension; Z79.899 Other long term (current) drug therapy
CPT/HCPCS: 36415; 70491; 71046; 80053; 81001; 84484; 85025; 85379; 86140; 96365; 99285; J0696; J7050; Q9967

== ENCOUNTER 2021-07-16 11:19 | Emergency (ER) | payer OTHER ==
--- NOTE | 2021-07-16 12:03 | EDM.PDOC ---
ED HPI GENERAL MEDICAL PROBLEM - General Chief Complaint: Laceration Stated Complaint: SLIPPED ON BOARD Time Seen by Provider: 07/16/21 12:00 Source of Information: Reports: Patient, Family, RN Notes Reviewed History Limitations: Reports: No Limitations - History of Present Illness INITIAL COMMENTS - FREE TEXT/NARRATIVE: 51-year-old gentleman presents emergency department today with a laceration to his left elbow he injured himself while at work he slipped and then hit a piece of what is described an angle iron which then hit into his elbow. He is experiencing great pain with movement of the elbow however he can move all his digits his tetanus does need to be updated. - Related Data Allergies Allergy/AdvReac Type Severity Reaction Status Date / Time acetaminophen [From [place]] Allergy Other Verified 11/26/19 21:31 hydrocodone [From [place]] Allergy Other Verified 11/26/19 21:31 Penicillins Allergy Nausea Verified 11/26/19 21:31 Home Meds: Home Meds amLODIPine [Norvasc] 5 mg PO DAILY 04/30/19 [History] Sildenafil [Viagra] 50 mg PO BEDTIME PRN 11/03/19 [History] alprostadiL [Prostaglandin E1] 1 dose TOP ASDIRECTED 11/26/19 [History] Albuterol Sulfate [Proair Respiclick] 90 mcg IH ASDIRECTED 07/16/21 [History] Fluticasone Propion/Salmeterol [Fluticasone-Salmeterol 500-50] 1 dose IH ASDIRECTED 07/16/21 [History] Montelukast Sodium 10 mg PO DAILY 07/16/21 [History] lisinopriL [Lisinopril] 40 mg PO DAILY 07/16/21 [History] Past Medical History Cardiovascular History: Reports: Hypertension Genitourinary History: Reports: Prostate Disorder Endocrine/Metabolic History: Reports: None Oncologic (Cancer) History: Reports: Prostate - Infectious Disease History Infectious Disease History: Reports: Chicken Pox - Past Surgical History Head Surgeries/Procedures: Reports: None Cardiovascular Surgical History: Reports: None Male Surgical History: Reports: Prostatectomy Endocrine Surgical History: Reports: Thyroidectomy, Other (See Below) Oncologic Surgical History: Reports: None Dermatological Surgical History: Reports: None Social & Family History - Tobacco Use Tobacco Use Status *Q: Never Tobacco User - Caffeine Use Caffeine Use: Reports: Soda - Recreational Drug Use Recreational Drug Use: No ED ROS GENERAL - Review of Systems Review Of Systems: See Below Constitutional: Reports: No Symptoms Cardiovascular: Reports: No Symptoms Musculoskeletal: Reports: Joint Pain Skin: Reports: Wound Neurological: Reports: No Symptoms ED EXAM, SKIN/RASH Exam: See Below Text/Narrative:: Examination of the elbow there is a 3 cm laceration over the lateral aspect of the elbow brief inspection there is no bleeding does not appear to penetrate to deep lead is through the skin. However his pain is significant with movement of the elbow no difficulty with movement of digits. Radial pulses +2 sensation is intact Exam Limited By: No Limitations ED SKIN PROCEDURES - Laceration/Wound Repair Left Elbow Appearance: Subcutaneous, Linear Distal NVT: Neuro & Vascular Intact, No Tendon Injury Anesthetic Type: Local Local Anesthesia - Lidocaine (Xylocaine): 1% with EPI Local Anesthetic Volume: 2cc Skin Prep: Saline Saline Irrigation (cc's): 30 Exploration/Debridement/Repair: Wound Explored, In a Bloodless Field, Explored to Base Closed with: Sutures Lac/Wound length In cm: 3 Suture Size: 3-0 # of Sutures: 4 Suture Type: Nylon, Interrupted Sterile Dressing Applied: Nurse Tetanus Status Addressed: Yes (today) Complications: No Course - Vital Signs Last Recorded V/S: Last Vital Signs Temp 97.7 F 07/16/21 11:51 Pulse 82 07/16/21 11:51 Resp 16 07/16/21 11:51 BP 152/88 H 07/16/21 11:51 Pulse Ox 95 07/16/21 11:51 - Orders/Labs/Meds Orders: Active Orders 24 hr Category Date Time Status Vaccines to be Administered [RC] PER UNIT ROUTINE Care 07/16/21 12:00 Active Meds: Medications Discontinued Medications Generic Name Dose Route Start Last Admin Trade Name Freq PRN Reason Stop Dose Admin Bacitracin 1 dose 07/16/21 12:29 Bacitracin Oint 1 Gm U/D Packet TOP 07/16/21 12:30 ONETIME ONE Diphtheria/Tetanus/Acell Pertussis 0.5 ml 07/16/21 12:00 07/16/21 12:07 Diphtheria,Pertussis(Acell),Tetanus Vaccine 0.5 Ml Syringe IM 07/16/21 12:01 0.5 ml .ONCE ONE Administration Ketorolac Tromethamine 30 mg 07/16/21 12:00 07/16/21 12:07 Ketorolac 30 Mg/Ml Sdv IM 07/16/21 12:01 30 mg ONETIME ONE Administration Lidocaine/Epinephrine 20 ml 07/16/21 12:29 Lidocaine 1% With Epinephrine 1:100,000 50 Ml Mdv SUBCUT 07/16/21 12:30 NOW STA Departure - Departure Time of Disposition: 12:55 Disposition: Home, Self-Care 01 Condition: Fair Clinical Impression: Laceration of left elbow Qualifiers: Encounter type: initial encounter Qualified Code(s): S51.012A - Laceration without foreign body of left elbow, initial encounter - Discharge Information Instructions: Laceration Care, Adult Referrals: PCP,None [Primary Care Provider] - Forms: ED Department Discharge Additional Instructions: Follow wound care instruction sheet suture removal in 10 days return to the emergency department or follow-up with primary care Sepsis Event Note (ED) - Evaluation Sepsis Screening Result: No Definite Risk - Focused Exam Vital Signs: Vital Signs Temp Pulse Resp BP Pulse Ox 07/16/21 11:51 97.7 F 82 16 152/88 H 95 07/16/21 11:46 97.7 F 82 16 152/88 H 95 - My Orders Last 24 Hours: My Active Orders 07/16/21 12:00 Vaccines to be Administered [RC] PER UNIT ROUTINE - Assessment/Plan Last 24 Hours: My Active Orders 07/16/21 12:00 Vaccines to be Administered [RC] PER UNIT ROUTINE Plan: Assessment Acuity = acute Site and laterality = 3 cm laceration left elbow Etiology = fall onto a piece of metal Manifestations = none Location of injury = work Lab values = x-ray reveals no fracture Plan Suture removal in 10 days, follow wound care instruction sheet follow-up with primary care or emergency department for suture removal This note was dictated using [employer] voice recognition software please call with any questions on syntax or grammar.
[2021-07-16] MEDS: Diphtheria,Pertussis(Acell),Tetanus Vaccine 0.5 ML Syringe IM ONE (12:07)
[2021-07-16] MEDS: Ketorolac 30 MG/ML SDV IM ONE (12:07)
--- NOTE | 2021-07-16 12:27 | CR ---
Elbow Min 3V Lt CLINICAL HISTORY: Puncture wound FINDINGS: No acute fracture or dislocation is noted. The fat pads are in normal position. No radiopaque foreign body is identified. IMPRESSION: No fracture or foreign body
[2021-07-16] MEDS ORDERED: Bacitracin Oint 1 GM U/D Packet TOP ONE (12:29)
[2021-07-16] MEDS ORDERED: Lidocaine 1% with EPINEPHrine 1:100,000 50 ML MDV SUBCUT STA (12:29)
== END 2021-07-16 13:11 | disposition home or self-care (01) ==
LOC: JP.ED 11:19
DX: S51.012A Laceration without foreign body of left elbow, initial encounter (principal); I10 Essential (primary) hypertension; Z23 Encounter for immunization; Z88.6 Allergy status to analgesic agent; Z88.5 Allergy status to narcotic agent; Z88.0 Allergy status to penicillin; Z79.899 Other long term (current) drug therapy; W01.198A Fall on same level from slipping, tripping and stumbling with subsequent striking against other object, initial encounter
CPT/HCPCS: 12002; 73080; 90471; 90715; 96372; 99283; J1885

== ENCOUNTER 2022-06-13 06:32 | Day surgery (SDC) | payer BC, OTHER ==
[2022-06-13] MEDS ORDERED: Lactated Ringers 1,000 ML IV SCH (07:00)
[2022-06-13] MEDS ORDERED: Propofol 200 MG/20 ML SDV ONE (07:17)
[2022-06-13] MEDS ORDERED: fentaNYL 100 MCG/2 ML SDV ONE (07:18)
[2022-06-13] MEDS ORDERED: Midazolam 1 MG/ML 2 ML SDV ONE (07:18)
== END 2022-06-13 09:58 | disposition home or self-care (01) ==
LOC: JP.SDS 06:32
PROVIDERS: ATTEND Family Medicine
DX: K62.1 Rectal polyp (principal); K63.5 Polyp of colon; I12.9 Hypertensive chronic kidney disease with stage 1 through stage 4 chronic kidney disease, or unspecified chronic kidney disease; N18.30 Chronic kidney disease, stage 3 unspecified; J45.909 Unspecified asthma, uncomplicated; Z01.812 Encounter for preprocedural laboratory examination; Z88.5 Allergy status to narcotic agent; Z88.0 Allergy status to penicillin; Z20.822 Contact with and (suspected) exposure to COVID-19
CPT/HCPCS: 45380; 87635; 88305; J2250; J2704; J3010; J7120; U0002

== ENCOUNTER 2024-02-08 17:01 | Emergency (ER) | payer BC ==
[2024-02-08 17:42] LABS: BASOPHILS ABSOLUTE AUTO 0.05 K/uL (0.00-0.10); BASOPHILS PERCENT AUTO 0.5 % (0.1-1.3); EOSINOPHILS ABSOLUTE AUTO 0.17 K/uL (0.00-0.40); EOSINOPHILS PERCENT AUTO 1.8 % (0.0-5.4); HEMATOCRIT 42.2 % (38.4-49.7); HEMOGLOBIN 15.1 g/dL (12.9-16.9); IMMATURE GRAN PERCENT AUTO 0.2 % (0.0-0.7); LYMPHOCYTES ABSOLUTE AUTO 1.21 K/uL (0.8-3.3); LYMPHOCYTES PERCENT AUTO 13.2 % (11.4-47.7); MEAN CORPUSCULAR HEMOGLOBIN 32.9 pg (31.6-35.5); MEAN CORPUSCULAR HGB CONC 35.8 g/dL (31.6-35.5); MEAN CORPUSCULAR VOLUME 91.9 fL (81.4-99.0); MONOCYTES ABSOLUTE AUTO 0.64 K/uL (0.20-0.90); NEUTROPHILS ABSOLUTE AUTO 7.11 K/uL (1.0-7.6); NEUTROPHILS PERCENT AUTO 77.3 % (40.0-78.1); PLATELET COUNT,PLT 237 K/uL (130-375); RED BLOOD CELL COUNT 4.59 M/uL (4.14-5.76); WHITE BLOOD CELL COUNT,WBC 9.2 K/uL (3.2-11.0)
[2024-02-08 17:44] LABS: IMMATURE GRAN ABSOLUTE AUTO 0.02 K/uL (0.00-0.23)
[2024-02-08] MEDS: Acetaminophen 1,000 MG in Premix Bag 1 BAG IV ONE (17:44)
[2024-02-08] MEDS: Sodium Chloride 0.9% 1,000 ML IV SCH (17:45)
[2024-02-08 18:06] LABS: A/G RATIO 1.1 (1.2-2.2); ALANINE AMINOTRANSFERASE,ALT 22 U/L (12-78); ALBUMIN 3.6 g/dL (3.4-5.0); ALKALINE PHOSPHATASE 78 U/L (46-116); ANION GAP 9.6 mmol/L (5.0-14.0); ASPARTATE AMNIOTRANSFERASE,AST 17 U/L (15-37); BILIRUBIN TOTAL 0.6 mg/dL (0.2-1.0); BLOOD UREA NITROGEN,BUN 22 mg/dL (7-18); CALCIUM 8.7 mg/dL (8.5-10.1); CARBON DIOXIDE,CO2 25 mmol/L (21-32); CHLORIDE,CL 105 mmol/L (100-108); CREATININE 1.3 mg/dL (0.8-1.3); EST CRCL DRUG DOSING (CG) 67.58 mL/min; ESTIMATED GFR 64 mL/min (>60); GLUCOSE RANDOM 100 mg/dL (74-106); POTASSIUM,K 3.9 mmol/L (3.6-5.2); SODIUM,NA 140 mmol/L (140-148)
[2024-02-08] MEDS: Cyclobenzaprine 10 MG Tab PO ONE (18:25)
[2024-02-08 19:47] LABS: APPEARANCE,URINE CLEAR (CLEAR); BILIRUBIN,URINE NEGATIVE (NEGATIVE); COLOR,URINE YELLOW (YELLOW); GLUCOSE,URINE NEGATIVE (NEGATIVE); KETONES,URINE NEGATIVE (NEGATIVE); LEUKOCYTE ESTERASE,URINE NEGATIVE (NEGATIVE); NITRITE,URINE NEGATIVE (NEGATIVE); OCCULT BLOOD,URINE TRACE-LYSED (NEGATIVE); PROTEIN,URINE NEGATIVE (NEGATIVE); UROBILINOGEN,URINE 0.2 EU/dL (0.2-1.0)
[2024-02-08] MEDS: Ketorolac 30 MG/ML SDV IVPUSH ONE (19:47)
[2024-02-08 19:54] LABS: AMORPHOUS SEDIMENT,URINE NOT SEEN; BACTERIA,URINE FEW; EPITHELIAL CELLS,URINE RARE; MUCUS,URINE FEW; WBC,URINE 0-5 (0-5)
[2024-02-08] MEDS: Gabapentin 300 MG Cap PO ONE (21:25)
== END 2024-02-08 21:58 | disposition home or self-care (01) ==
LOC: JP.ED 17:01
DX: M51.16 Intervertebral disc disorders with radiculopathy, lumbar region (principal); I10 Essential (primary) hypertension; J45.909 Unspecified asthma, uncomplicated; Z79.899 Other long term (current) drug therapy; Z88.5 Allergy status to narcotic agent; Z88.0 Allergy status to penicillin
CPT/HCPCS: 36415; 72131; 76377; 80053; 81001; 85025; 96374; 96375; 96376; 99284; A9270; J0131; J1885; J3360; J7030

== ENCOUNTER 2024-02-16 16:53 | Emergency (ER) | payer BC ==
[2024-02-16] MEDS: Ketorolac 30 MG/ML SDV IM ONE (17:14)
[2024-02-16] MEDS: HYDROmorphone 1 MG/ML Syringe IM ONE ×2 (17:33→19:01)
[2024-02-16] MEDS: LORazepam 2 MG/ML SDV IM ONE (19:02)
== END 2024-02-16 19:47 | disposition home or self-care (01) ==
LOC: JP.ED 16:53
DX: M51.16 Intervertebral disc disorders with radiculopathy, lumbar region (principal); I10 Essential (primary) hypertension; Z88.5 Allergy status to narcotic agent; Z88.0 Allergy status to penicillin; Z88.6 Allergy status to analgesic agent; Z79.899 Other long term (current) drug therapy; Z87.891 Personal history of nicotine dependence
CPT/HCPCS: 96372; 99283; J1170; J1885; J2060; J3360; 99284

== ENCOUNTER 2024-02-17 09:10 | Observation (INO) | payer BC ==
[2024-02-17] MEDS: HYDROmorphone 1 MG/ML Syringe IM ONE ×2 (11:17→13:23)
[2024-02-17] MEDS: Cyclobenzaprine 10 MG Tab PO ONE (11:19)
[2024-02-17 15:09] LABS: CORONAVIRUS COVID-19 NAA NEGATIVE (NEGATIVE); INFLUENZA A NAA NEGATIVE (NEGATIVE); INFLUENZA B NAA NEGATIVE (NEGATIVE); RESPIRATORY SYNCYTIAL VIR NAA NEGATIVE (NEGATIVE)
[2024-02-17] MEDS ORDERED: Sodium Chloride 0.9% 10 ML Syringe FLUSH PRN (15:22)
[2024-02-17] MEDS ORDERED: Ondansetron 4 MG/2 ML SDV IV PRN (15:22)
[2024-02-17 15:34] LABS: HEMATOCRIT 44.6 % (38.4-49.7); HEMOGLOBIN 15.6 g/dL (12.9-16.9); MEAN CORPUSCULAR HEMOGLOBIN 32.4 pg (31.6-35.5); MEAN CORPUSCULAR VOLUME 92.5 fL (81.4-99.0); RED BLOOD CELL COUNT 4.82 M/uL (4.14-5.76); WHITE BLOOD CELL COUNT,WBC 7.9 K/uL (3.2-11.0)
[2024-02-17] MEDS: Dexamethasone 2 MG Tab PO SCH (15:37)
[2024-02-17] MEDS: Polyethylene Glycol 3350 Powder 17 GM Packet PO PRN (15:37)
[2024-02-17] MEDS: Pantoprazole 40 MG Tab.CR PO SCH (15:37)
[2024-02-17 15:51] LABS: BLOOD UREA NITROGEN,BUN 30 mg/dL (7-18); CALCIUM 9.3 mg/dL (8.5-10.1); CARBON DIOXIDE,CO2 30 mmol/L (21-32); CHLORIDE,CL 99 mmol/L (100-108); CREATININE 1.3 mg/dL (0.8-1.3); EST CRCL DRUG DOSING (CG) 67.58 mL/min; ESTIMATED GFR 64 mL/min (>60); GLUCOSE RANDOM 94 mg/dL (74-106); MAGNESIUM 1.9 mg/dL (1.8-2.4); POTASSIUM,K 4.3 mmol/L (3.6-5.2); SODIUM,NA 139 mmol/L (140-148)
[2024-02-17 15:54] LABS: ANION GAP 14.3 mmol/L (5.0-14.0); C-REACTIVE PROTEIN < 0.50 mg/dL (<0.50)
[2024-02-17] MEDS: Acetaminophen 325 MG Tab PO PRN (17:15)
[2024-02-17] MEDS: HYDROmorphone 2 MG Tab PO PRN (17:16)
[2024-02-17] MEDS: Gabapentin 300 MG Cap PO SCH (20:23)
[2024-02-17] MEDS: Diazepam 5 MG Tab PO SCH (22:31)
[2024-02-18] MEDS: Lisinopril 20 MG Tab PO SCH (08:21)
[2024-02-18] MEDS ORDERED: methylPREDNISolone Acetate 80 MG/ML SDV ONE (10:22)
[2024-02-18] MEDS ORDERED: Bupivacaine 0.25% 10 ML SDV ONE (10:22)
== END 2024-02-19 13:00 | disposition home or self-care (01) ==
LOC: JP.ED 09:10 → JP.MS 14:05
PROVIDERS: ADMIT Hospitalist; ATTEND Hospitalist
DX: M51.16 Intervertebral disc disorders with radiculopathy, lumbar region (principal); I10 Essential (primary) hypertension; J45.909 Unspecified asthma, uncomplicated; Z88.0 Allergy status to penicillin; Z79.899 Other long term (current) drug therapy; M54.50 Low back pain, unspecified; Z88.5 Allergy status to narcotic agent
CPT/HCPCS: 0241U; 36415; 80048; 83735; 85027; 86140; 96372; 97161; 99284; 99285; A9270; J1040; J1170; J3490; J8540; 99222; 99232; 99238; G0378